=== PATIENT | female | born 1935 | race Caucasian/White ===

== ENCOUNTER → 2017-02-14 | Outpatient (CLI) | payer OTHER ==
[~2017-02-14] MED LIST: AMLO5TAB2 PO; ASCO500T8 PO; ASPI325T4 PO; CALCIUM 600 PO; CARV12.52 PO; CHLO25TA PO; CHOL20002 PO; CINNAMON PO; DOXY100T PO; FEVE1POW PO; FOLIC ACID PO; FURO20TA3 PO; GARL500T PO; GLUC-104 PO; LEVO112T4 PO; LOSA50TA6 PO; MAGN400T36 PO; METF500T4 PO; OMEG1CAP12 PO; OXYGEN; POTA10TA11 PO; RED600TA PO; SIMV10TA3 PO; UBID100C11 PO; VIT1TABL32 PO; VITA400C40 PO; ZINC25CA PO
== END | disposition home or self-care (01) ==
LOC: CFH 15:12
PROVIDERS: ATTEND Internal Medicine Cardiovascular Disease
DX: I08.3 Combined rheumatic disorders of mitral, aortic and tricuspid valves (principal); J18.9 Pneumonia, unspecified organism; E11.9 Type 2 diabetes mellitus without complications; E87.1 Hypo-osmolality and hyponatremia
CPT/HCPCS: 93306

== ENCOUNTER → 2017-11-17 | Outpatient (CLI) | payer OTHER ==
[~2017-11-17] MED LIST changes: +ASPI325T17 PO; -ASPI325T4 PO; -GARL500T PO; +GARL500T3 PO; -OMEG1CAP12 PO; +OMEG1CAP23 PO; +REGADENOSON 0.4 MG/5 ML SYRINGE ONE; -UBID100C11 PO; +UBID100C41 PO; -VITA400C40 PO; +VITA400C43 PO
== END | disposition home or self-care (01) ==
LOC: RAD 07:28
PROVIDERS: ATTEND Internal Medicine Cardiovascular Disease
DX: I08.3 Combined rheumatic disorders of mitral, aortic and tricuspid valves (principal); I25.10 Atherosclerotic heart disease of native coronary artery without angina pectoris; I10 Essential (primary) hypertension; E11.9 Type 2 diabetes mellitus without complications; I51.81 Takotsubo syndrome
CPT/HCPCS: 78452; 93017; 93306; A9502; J2785

== ENCOUNTER → 2018-12-01 | Outpatient (CLI) | payer MEDICARE, OTHER ==
[~2018-12-01] MED LIST changes: +AMLO-150 PO; -AMLO5TAB2 PO; -CHOL20002 PO; +CHOL200085 PO; -LOSA50TA6 PO; +LOSA50TA7 PO; +METF500T17 PO; -METF500T4 PO; -REGADENOSON 0.4 MG/5 ML SYRINGE ONE
== END | disposition home or self-care (01) ==
LOC: CFH 12:38
PROVIDERS: ATTEND Internal Medicine Cardiovascular Disease
DX: I08.0 Rheumatic disorders of both mitral and aortic valves (principal); I25.2 Old myocardial infarction; I10 Essential (primary) hypertension; E78.5 Hyperlipidemia, unspecified
CPT/HCPCS: 93306

== ENCOUNTER 2019-06-28 08:36 | Outpatient (CLI) | payer MEDICARE ==
[~2019-06-28 08:36] MED LIST changes: +CHOL20002 PO; -CHOL200085 PO; +LOSA50TA14 PO; -LOSA50TA7 PO
== END 2019-06-28 23:59 | disposition home or self-care (01) ==
LOC: CVU 08:36
PROVIDERS: ATTEND Registered Nurse
DX: I51.81 Takotsubo syndrome (principal); R60.9 Edema, unspecified
CPT/HCPCS: 93306; 93970

== ENCOUNTER 2019-10-23 10:12 | Outpatient (CLI) | payer MEDICARE | END 2019-10-23 23:59 | disposition home or self-care (01) | LOC: CFH 10:12 | PROVIDERS: ATTEND Internal Medicine | DX: J84.9 Interstitial pulmonary disease, unspecified (principal); R59.1 Generalized enlarged lymph nodes; E11.8 Type 2 diabetes mellitus with unspecified complications | CPT/HCPCS: 71250 ==

== ENCOUNTER → 2021-02-12 | Outpatient (CLI) | payer MEDICARE ==
[~2021-02-12] MED LIST changes: +ALEN70TA77 PO; +AMLO-211 PO; +CA C1TAB60 PO; +CALC1CAP8 PO; +FURO-93 PO; +FURO40TA6 PO; +LOSA25TA12 PO; +POTA20TA6 PO; +POTA99TA3 PO; +SIMV10TA18 PO; -SIMV10TA3 PO; +SIMV5TAB14 PO; +SPIR25TA5 PO; +TORS20TA2 PO; +VALS40TA2 PO
== END | disposition home or self-care (01) ==
LOC: CFH 10:49
PROVIDERS: ATTEND Family Medicine
DX: M81.0 Age-related osteoporosis without current pathological fracture (principal)
CPT/HCPCS: 77080